=== PATIENT | female | born 1995 | race Caucasian/White ===

== ENCOUNTER → 2024-01-20 | Outpatient (CLI) | payer OTHER, SELFPAY ==
--- NOTE | 2024-01-20 12:09 | US_ITS ---
INDICATION: Infertility EXAMINATION: Ultrasound US Transvaginal Non-OB TECHNIQUE: Transvaginal (for optimal evaluation of the adnexa) pelvic ultrasound was performed. Grayscale, spectral waveform, and color flow Doppler evaluation of the adnexa. COMPARISON: FINDINGS: UTERUS: Anteverted/retroflexed. The uterus measures 10.4 x 6 x 6 cm. There is no uterine mass. Nabothian cysts. The endometrial stripe measures 23 mm in AP diameter which is thickened. There is a endometrial echogenic focus in the lower endometrial cavity possibly a calcific focus. RIGHT OVARY: 5.1 x 4.2 x 4.5 cm. There is a complex septated cystic 4.5 x 3.6 x 3.5 cm mass. There is normal arterial inflow and venous outflow present in the right ovary. LEFT OVARY: 5.3 x 2.2 x 2.9 cm. Non-enlarged, normal echogenicity. There is normal arterial inflow and venous outflow present in the left ovary. FREE FLUID: Mild. US/Transvaginal Non- IMPRESSION: Thickened heterogeneous endometrium with echogenic focus. Nabothian cysts. Complex right adnexal cystic mass. Electronically Signed: Hira Vital DO at 16:42 EDT Reading Location ID and State: [facility] / [place] Tel [phone], Service support ,
== END | disposition home or self-care (01) ==
PROVIDERS: Referring Provider Advanced Practice Midwife; Visit Provider Advanced Practice Midwife
DX: Z31.9 Encounter for procreative management, unspecified (principal)
CPT/HCPCS: 76830

== ENCOUNTER → 2024-03-02 | Outpatient (CLI) | payer OTHER, SELFPAY ==
--- NOTE | 2024-03-02 10:21 | US_ITS ---
STUDY: ULTRASOUND OF THE FEMALE PELVIS - COMPLETE REASON FOR EXAM: Female, 28 years old. Pelvic pain LMP: February 21, 2024. TECHNIQUE: Transvaginal TECHNICAL QUALITY: Adequate. COMPARISON: Comparison is made with prior study dated January 20, 2024. FINDINGS: The uterus is anteverted and is in a midline position. The uterus measures 9.8 cm x 5.5 cm x 4.5 cm. There is a Nabothian cyst of the cervix. The endometrium measures 6 mm in thickness, and is hyperechoic. There is no demonstrated endometrial mass. There is no demonstrated myometrial mass. I.U.D. - The patient does not have an I.U.D. The right ovary is visualized. The right ovary measures 3.5 cm x 2.3 cm x 2.1 cm. There is no right ovarian cyst or ovarian mass. There is no visualized right adnexal mass or complex lesion. There is normal arterial and normal venous vascularity. The left ovary is visualized. The left ovary measures 3.7 cm x 3.1 cm x 2.1 cm. There is no left ovarian cyst or ovarian mass. There is no visualized left adnexal mass or complex lesion. There is normal arterial and normal venous vascularity. There is minimal fluid in the cul-de-sac. US/Transvaginal Non- IMPRESSION: The previously seen right ovarian cyst has resolved. Electronically Signed: Travis Mcgee MD at 13:42 EDT ,
== END | disposition home or self-care (01) ==
PROVIDERS: Referring Provider Advanced Practice Midwife; Visit Provider Advanced Practice Midwife
DX: R10.2 Pelvic and perineal pain (principal)
CPT/HCPCS: 76830

== ENCOUNTER → 2024-03-12 | Outpatient (CLI) | payer OTHER, SELFPAY ==
[2024-03-12 11:47] LABS: Hemoglobin A1c 4.8 % (3.8-5.6)
[2024-03-12 11:49] LABS: T4 Free Direct 0.83 ng/dL (0.76-1.46); Thyroid Stim Hormone (TSH) 1.86 uIU/mL (0.358-3.74)
[2024-03-14 10:41] LABS: PROGESTERONE 13.1 ng/mL (.); Thyroid Peroxidase AB < 9 IU/mL (0-34)
== END | disposition home or self-care (01) ==
LOC: LAB 10:21
PROVIDERS: Referring Provider Nurse Practitioner Women's Health; Visit Provider Nurse Practitioner Women's Health
DX: N97.0 Female infertility associated with anovulation (principal); Z13.29 Encounter for screening for other suspected endocrine disorder
CPT/HCPCS: 36415; 83036; 84144; 84439; 84443; 86376